=== PATIENT | female | born 1965 | race African-American/Black ===

== ENCOUNTER 2017-08-30 05:33 | Inpatient (IN) ==
[2017-08-22 11:15] LABS: Basophils # 0.1 10*3/uL (0.0-0.2); Basophils % 0.6 % (0.0-0.8); Eosinophils # 0.3 10*3/uL (0.0-0.87); Eosinophils % 2.6 % (0.00-10.9); Hematocrit 40.4 VOL% (35.7-47.0); Hemoglobin 12.2 GM/DL (12.0-16.0); Immature Granulocytes % 0.3 %; Immature Granulocytes Absolute 0.04 #; Lymphocytes # 3.7 10*3/uL (1.4-4.0); Mean Corpuscular HGB Conc 30.2 GM/DL (32-36); Mean Corpuscular Hemoglobin 25 PG (27-34); Mean Corpuscular Volume 81.6 FL (87-102); Mean Platelet Volume 11.2 FL (9.6-12.0); Monocytes # 0.8 10*3/uL (0.11-0.8); Monocytes % 6.3 % (1.7-12.7); Neutrophils # 8.1 10*3/uL (1.4-7.4); Neutrophils % 62.2 % (38.7-73.9); Platelet Count 351 T/CUMM (130-400); Red Blood Count 4.95 MC/CUMM (3.8-5.5); Red Cell Distribution Width 15.3 % (9.3-17.3); White Blood Count 13.1 T/CUMM (4-12)
[2017-08-22 11:24] LABS: Apearance,Urine CLEAR (Clear); Bacteria,Urine Occasional /HPF (Few); Bilirubin,Urine Negative (Negative); Blood, Urine Moderate mg/dL (Negative); Glucose,Urine (UA) Negative (Negative); Ketones,Urine Negative (Negative); Mucus,Urine Occasional /LPF (Occasional); Nitrite,Urine Negative (Negative); Protein,Urine Negative; RBC,Urine 5 /HPF (0-4); Squamous Epithelial Cell,Urine Occasional /HPF (0-10); Urine Color Yellow (Yellow); Urine Specific Gravity 1.019 (1.001-1.035); Urine Urobilinogen < 2.0 EU/DL (0.2-1.0); WBC,Urine 1 /HPF (0-6)
[2017-08-22 11:26] LABS: INR 0.9; Partial Thromboplastin Time 24.8 SECS (0-40)
[2017-08-22 11:52] LABS: Albumin 3.6 G/DL (3.4-5.0); Bilirubin,Total 0.6 MG/DL (0.2-1.0); Calcium 10.3 MG/DL (8.5-10.1); Osmolality,Calculated 281.3 MOS/KG (273-304); Potassium 3.7 MMOL/L (3.5-5.1); Total Protein 7.4 G/DL (6.4-8.3)
[2017-08-30] MEDS ORDERED: ceFAZolin 2,000 MG in PREMIX 1 EACH IV ONE (06:26)
[2017-08-30] MEDS ORDERED: LACTATED RINGERS 1,000 ML IV SCH (06:30)
[2017-08-30] MEDS ORDERED: LIDOCAINE MPF 2% /EPI 20 ML VIAL ONE (06:49)
[2017-08-30] MEDS ORDERED: ROPIVACAINE 0.5% 30 ML VIAL ONE ×3 (06:49→11:03)
[2017-08-30] MEDS ORDERED: TRANEXAMIC ACID 1,000 MG/10 ML VIAL IV ONE ×2 (06:49→06:58)
[2017-08-30] MEDS ORDERED: BACITRACIN OINT 0.9 GM PACK TOP ONE (06:58)
[2017-08-30] MEDS ORDERED: ALBUTEROL 2.5 MG/3 ML NEB RESP TX ONE (07:00)
[2017-08-30] MEDS ORDERED: IPRATROPIUM 500 MCG/2.5 ML NEB RESP TX ONE (07:00)
[2017-08-30] MEDS ORDERED: GABAPENTIN 400 MG CAPSULE PO ONE (07:00)
[2017-08-30] MEDS ORDERED: FAMOTIDINE 20 MG TABLET PO ONE (07:00)
[2017-08-30] MEDS ORDERED: ACETAMINOPHEN 500 MG TABLET PO ONE (07:00)
[2017-08-30] MEDS ORDERED: DIAZEPAM 5 MG TABLET PO ONE (07:00)
[2017-08-30] MEDS ORDERED: DIAZEPAM 5 MG TABLET ONE (07:05)
[2017-08-30] MEDS ORDERED: VANCOMYCIN 1,000 MG VIAL ONE (07:05)
[2017-08-30] MEDS ORDERED: FAMOTIDINE 20 MG TABLET ONE (07:06)
[2017-08-30] MEDS ORDERED: ACETAMINOPHEN 500 MG TABLET ONE (07:06)
[2017-08-30] MEDS ORDERED: GABAPENTIN 400 MG CAPSULE ONE (07:06)
[2017-08-30] MEDS ORDERED: ONDANSETRON 4 MG/2 ML VIAL IV PRN ×2 (09:42→11:21)
[2017-08-30] MEDS ORDERED: PROMETHAZINE 25 MG/1 ML VIAL IM PRN (09:42)
[2017-08-30] MEDS ORDERED: diphenhydrAMINE CAP 25 MG CAPSULE PO PRN (09:42)
[2017-08-30] MEDS ORDERED: MORPHINE 2 MG/1 ML SYRINGE IV PRN (09:42)
[2017-08-30] MEDS ORDERED: ceFAZolin 1,000 MG in SYRINGE 1 EACH IV ONE (11:00)
[2017-08-30] MEDS ORDERED: HYDROmorphone 2 MG/1 ML VIAL ONE (11:15)
[2017-08-30] MEDS ORDERED: ONDANSETRON 4 MG/2 ML VIAL ONE ×2 (11:15→11:32)
[2017-08-30] MEDS: KETOROLAC 30 MG/1 ML VIAL IV SCH ×3 (11:20→22:55)
[2017-08-30] MEDS ORDERED: HYDROmorphone 2 MG/1 ML VIAL IV PRN (11:21)
[2017-08-30] MEDS ORDERED: VANCOMYCIN INJ 1,000 MG in SODIUM CHLORIDE 0.9% 250 ML IV ONE (11:30)
[2017-08-30] MEDS ORDERED: SEVOFLURANE 1 UNIT/15 MINUTE INH ONE (11:31)
[2017-08-30] MEDS ORDERED: PROPOFOL 200 MG/20 ML VIAL IV ONE (11:31)
[2017-08-30] MEDS ORDERED: LABETALOL 100 MG/20 ML VIAL IV ONE (11:32)
[2017-08-30] MEDS ORDERED: MIDAZOLAM 2 MG/2 ML VIAL ONE (11:32)
[2017-08-30] MEDS ORDERED: fentaNYL 100 MCG/2 ML VIAL ONE (11:32)
[2017-08-30] MEDS ORDERED: GLYCOPYRROLATE 0.4 MG/2 ML VIAL ONE (11:32)
[2017-08-30] MEDS ORDERED: DEXAMETHASONE 4 MG/1 ML VIAL ONE (11:32)
[2017-08-30] MEDS ORDERED: ROCURONIUM 100 MG/10 ML VIAL IV ONE (11:33)
[2017-08-30] MEDS ORDERED: LACTATED RINGERS 1,000 ML IV ONE (11:33)
[2017-08-30] MEDS ORDERED: SUCCINYLCHOLINE 200 MG/10 ML VIAL ONE (11:33)
[2017-08-30] MEDS ORDERED: NEOSTIGMINE 10 MG/10 ML VIAL ONE (11:33)
[2017-08-30] MEDS ORDERED: oxyCODONE IR 5 MG TABLET PO PRN (12:00)
[2017-08-30] MEDS: MORPHINE 2 MG/1 ML SYRINGE IV PRN ×2 (12:26→19:42)
[2017-08-30] MEDS: LACTATED RINGERS 1,000 ML IV SCH ×2 (12:27→20:43)
[2017-08-30] MEDS: ACETAMINOPHEN 500 MG TABLET PO SCH ×2 (14:45→20:41)
[2017-08-30] MEDS: ceFAZolin 2,000 MG in PREMIX 1 EACH IV SCH ×2 (14:45→22:30)
[2017-08-30] MEDS: ALBUTEROL 2.5 MG/3 ML NEB RESP TX SCH ×2 (15:00→19:10)
[2017-08-30] MEDS: DOCUSATE SODIUM 100 MG CAPSULE PO SCH (20:40)
[2017-08-30] MEDS: GABAPENTIN 300 MG CAPSULE PO SCH (20:40)
[2017-08-30] MEDS: oxyCODONE IR 5 MG TABLET PO PRN (20:41)
[2017-08-31] MEDS: ACETAMINOPHEN 500 MG TABLET PO SCH ×2 (02:33→09:26)
[2017-08-31] MEDS: LACTATED RINGERS 1,000 ML IV SCH (04:54)
[2017-08-31] MEDS: KETOROLAC 30 MG/1 ML VIAL IV SCH (04:54)
[2017-08-31 05:44] LABS: Basophils % 0.3 % (0.0-0.8); Eosinophils % 0.1 % (0.00-10.9); Hematocrit 33.9 VOL% (35.7-47.0); Hemoglobin 10.7 GM/DL (12.0-16.0); Immature Granulocytes % 0.5 %; Immature Granulocytes Absolute 0.08 #; Lymphocytes # 2.1 10*3/uL (1.4-4.0); Lymphocytes % 13.6 % (21.3-54.2); Mean Corpuscular HGB Conc 31.6 GM/DL (32-36); Mean Corpuscular Hemoglobin 25 PG (27-34); Mean Corpuscular Volume 80.5 FL (87-102); Mean Platelet Volume 11.3 FL (9.6-12.0); Monocytes # 1.1 10*3/uL (0.11-0.8); Monocytes % 6.9 % (1.7-12.7); Neutrophils # 12.1 10*3/uL (1.4-7.4); Neutrophils % 78.6 % (38.7-73.9); Platelet Count 280 T/CUMM (130-400); Red Blood Count 4.21 MC/CUMM (3.8-5.5); Red Cell Distribution Width 15.2 % (9.3-17.3); White Blood Count 15.4 T/CUMM (4-12)
[2017-08-31 06:28] LABS: Calcium 8.9 MG/DL (8.5-10.1); Osmolality,Calculated 284.3 MOS/KG (273-304); Potassium 4.1 MMOL/L (3.5-5.1)
[2017-08-31] MEDS: FONDAPARINUX 2.5 MG/0.5 ML SYRINGE SUBCUT SCH (06:44)
[2017-08-31] MEDS: ALBUTEROL 2.5 MG/3 ML NEB RESP TX SCH ×4 (07:12→19:44)
[2017-08-31] MEDS ORDERED: LISINOPRIL 10 MG TABLET PO SCH (09:00)
[2017-08-31] MEDS: amLODIPine 5 MG TABLET PO SCH (09:27)
[2017-08-31] MEDS: POTASSIUM CHLORIDE 10 MEQ TABLET PO SCH (09:27)
[2017-08-31] MEDS: DOCUSATE SODIUM 100 MG CAPSULE PO SCH ×2 (09:27→21:07)
[2017-08-31] MEDS: LISINOPRIL/HCTZ 20-25 MG TABLET PO SCH (09:27)
[2017-08-31] MEDS: PANTOPRAZOLE 40 MG TABLET PO SCH (09:28)
[2017-08-31] MEDS: CELECOXIB 200 MG CAPSULE PO SCH (16:04)
[2017-08-31] MEDS: GABAPENTIN 300 MG CAPSULE PO SCH (21:07)
[2017-09-01] MEDS: oxyCODONE IR 5 MG TABLET PO PRN ×2 (04:55→09:41)
[2017-09-01 05:56] LABS: Basophils # 0.1 10*3/uL (0.0-0.2); Basophils % 0.5 % (0.0-0.8); Eosinophils # 0.3 10*3/uL (0.0-0.87); Hematocrit 34.6 VOL% (35.7-47.0); Hemoglobin 10.4 GM/DL (12.0-16.0); Immature Granulocytes % 0.4 %; Immature Granulocytes Absolute 0.06 #; Lymphocytes # 2.9 10*3/uL (1.4-4.0); Lymphocytes % 19.6 % (21.3-54.2); Mean Corpuscular HGB Conc 30.1 GM/DL (32-36); Mean Corpuscular Hemoglobin 25 PG (27-34); Mean Corpuscular Volume 81.6 FL (87-102); Mean Platelet Volume 11.6 FL (9.6-12.0); Monocytes # 1.4 10*3/uL (0.11-0.8); Monocytes % 9.4 % (1.7-12.7); Neutrophils # 10.1 10*3/uL (1.4-7.4); Neutrophils % 68.1 % (38.7-73.9); Platelet Count 278 T/CUMM (130-400); Red Blood Count 4.24 MC/CUMM (3.8-5.5); Red Cell Distribution Width 15.2 % (9.3-17.3); White Blood Count 14.8 T/CUMM (4-12)
[2017-09-01] MEDS: FONDAPARINUX 2.5 MG/0.5 ML SYRINGE SUBCUT SCH (06:31)
[2017-09-01] MEDS: ALBUTEROL 2.5 MG/3 ML NEB RESP TX SCH (07:43)
[2017-09-01] MEDS ORDERED: MAGNESIUM HYDROXIDE SUSP 30 ML UDCUP PO PRN (09:00)
[2017-09-01] MEDS: POTASSIUM CHLORIDE 10 MEQ TABLET PO SCH (09:40)
[2017-09-01] MEDS: DOCUSATE SODIUM 100 MG CAPSULE PO SCH (09:40)
[2017-09-01] MEDS: CELECOXIB 200 MG CAPSULE PO SCH (09:40)
[2017-09-01] MEDS: amLODIPine 5 MG TABLET PO SCH (09:40)
[2017-09-01] MEDS: LISINOPRIL/HCTZ 20-25 MG TABLET PO SCH (09:41)
[2017-09-01] MEDS: PANTOPRAZOLE 40 MG TABLET PO SCH (09:41)
[2017-09-01 11:13] VITALS: BP 161/90
== END 2017-09-01 15:00 | disposition home or self-care (01) | DRG 470 ==
LOC: N.OR 05:33 → N.SDSINP 05:33 → N.3E 09:42 → EDSTATUS 12:30
PROVIDERS: ADMIT Orthopaedic Surgery; ATTEND Orthopaedic Surgery